=== PATIENT | female | born 1975 | race American Indian/Alaskan Native ===

== ENCOUNTER 2019-08-02 14:08 | Emergency (ER) | payer SELFPAY ==
--- NOTE | 2019-08-02 14:26 | Emergency Department Report ---
Blank Doc - Documentation Documentation: 44-year-old female that presents with URI symptoms. This initial assessment/diagnostic orders/clinical plan/treatment(s) is/are subject to change based on patient's health status, clinical progression and re- assessment by fellow clinical providers in the ED. Further treatment and workup at subsequent clinical providers discretion. Patient/guardians urged not to elope from the ED as their condition may be serious if not clinically assessed and managed. Initial orders include: 1- Patient sent to [facility] for further evaluation and treatment 2- cxr 3- flu swab
[2019-08-02] MEDS ORDERED: SODIUM CHLORIDE 0.9% 1000 ML IV SOLN IV ONE (14:30)
[2019-08-02] MEDS ORDERED: IBUPROFEN 600 MG TAB PO ONE ×2 (14:32→14:34)
--- NOTE | 2019-08-02 15:14 | XRay Report ---
CHEST 2 VIEWS INDICATION / CLINICAL INFORMATION: Cough. COMPARISON: None available. FINDINGS: SUPPORT DEVICES: None. HEART / MEDIASTINUM: There is a median sternotomy. The heart size and pulmonary vasculature are latoya l. LUNGS / PLEURA: No significant pulmonary or pleural abnormality. No pneumothorax. ADDITIONAL FINDINGS: No significant additional findings. IMPRESSION: No acute findings. Signer Name: Isma Toledo MD Signed: 08/02/2019 3:09 PM Workstation Name: [id number]
[2019-08-02 15:19] LABS: Albumin 4.2 g/dL (3.9-5); Calcium 9.5 mg/dL (8.4-10.2)
[2019-08-02 15:37] LABS: Basophils % (Auto) 0.2 % (0.0-1.8); Hemoglobin 10.8 gm/dl (10.1-14.3); Lymphocytes # (Auto) 1.9 K/mm3 (1.2-5.4); Lymphocytes % (Auto) 10.1 % (13.4-35.0); Mean Corpuscular HGB Conc 33 % (30-34); Mean Corpuscular Volume 87 fl (79-97); Monocytes # (Auto) 2.2 K/mm3 (0.0-0.8); Monocytes % (Auto) 11.6 % (0.0-7.3); Platelet Count 202 K/mm3 (140-440); Red Blood Count 3.78 M/mm3 (3.65-5.03); Red Cell Distribution Width 15.6 % (13.2-15.2)
[2019-08-02] MEDS ORDERED: SODIUM CHLORIDE 0.9% 1000 ML 3,000 ML ONE (17:19)
[2019-08-02] MEDS ORDERED: ACETAMINOPHEN 500 MG TAB PO ONE (17:22)
[2019-08-02] MEDS ORDERED: SODIUM CHLORIDE 0.9% 1000 ML 2,000 ML IV ONE (17:22)
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
[2019-08-02 18:56] VITALS: BP 99/50
[2019-08-02] MEDS ORDERED: POTASSIUM CHLORIDE ER 20 MEQ TAB PO ONE (19:11)
[2019-08-02 19:52] LABS: Calcium 7.6 mg/dL (8.4-10.2)
[2019-08-02] MEDS ORDERED: MAGNESIUM OXIDE 400 MG TAB PO STA (20:42)
[2019-08-02] MEDS ORDERED: MAGNESIUM SULFATE 2 GM/50 ML BAG IV ONE (20:42)
[2019-08-02] MEDS: POTASSIUM CHLORIDE 10 MEQ 10 MEQ/100 ML BAG IV SCH (21:10)
== END 2019-08-02 21:45 | disposition home or self-care (01) ==
LOC: ED 14:08
DX: N17.9 Acute kidney failure, unspecified (principal); E83.42 Hypomagnesemia; J11.1 Influenza due to unidentified influenza virus with other respiratory manifestations; E87.6 Hypokalemia
CPT/HCPCS: 36415; 71046; 80048; 80053; 82140; 82550; 83735; 84702; 85025; 87040; 87400; 96365; 99284; J3475; J3480; J7030

== ENCOUNTER 2022-05-22 04:04 | Emergency (ER) | payer OTHER ==
[2022-05-22] MEDS ORDERED: TETANUS,DIPH,PERTUSS(ACELL) VACCINE 0.5 ML SYRINGE IM ONE (06:34)
[2022-05-22] MEDS ORDERED: BACITRACIN ZINC OINT 28.4 GM TP STA (06:34)
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
[2022-05-22 07:56] VITALS: BP 116/78
== END 2022-05-22 07:30 | disposition home or self-care (01) ==
LOC: ED 04:04
DX: S40.811A Abrasion of right upper arm, initial encounter (principal); I10 Essential (primary) hypertension; Z72.89 Other problems related to lifestyle; Z79.899 Other long term (current) drug therapy; V87.7XXA Person injured in collision between other specified motor vehicles (traffic), initial encounter; Y93.89 Activity, other specified; Y92.488 Other paved roadways as the place of occurrence of the external cause; Y99.8 Other external cause status
CPT/HCPCS: 90471; 90715; 99283